=== PATIENT | male | born 1945 | race Caucasian/White ===

== ENCOUNTER → 2016-09-24 | Outpatient (CLI) | payer OTHER, MEDICARE ==
[2016-09-24 08:23] LABS: CALCIUM 9.4 mg/dL (8.5-10.1); CREATININE 1.1 mg/dL (0.7-1.3); POTASSIUM 4.1 mmol/L (3.5-5.1)
== END ==
LOC: CAT 07:12
PROVIDERS: Internal Medicine Cardiovascular Disease
DX: Z01.812 Encounter for preprocedural laboratory examination (principal); I71.4 Abdominal aortic aneurysm, without rupture; Q61.02 Congenital multiple renal cysts

== ENCOUNTER → 2016-10-04 | Outpatient (CLI) | payer OTHER, MEDICARE ==
[~2016-10-04] VITALS: Ht 180.3 cm; Wt 111.1 kg
[~2016-10-04] MED LIST: CENTRUM SILVER1 EAC2 PO; DIOVAN320 MG PO; FENOFIBRATE160 MG PO; HYDROCHLOROTHIA25 M2 PO; LIPITOR40 MG PO; LOPRESSOR25 PO; VASCEPA1 GM PO; VITAMIN B-12500 MCG PO; VITAMIN D35000 UNI1 PO; WELCHOL 625 MG625 MG PO
--- NOTE | ~2016-10-04 | EKG ---
[address] [address] ELECTROCARDIOGRAM REPORT Name: VICK NORIEGA [id number] Admission: 10/04/16 Attend Phys: Cisco Adkins MD, Discharge: Date of : 41 Report #: [id number] THIS REPORT FOR: //name// [facility] Test Date: 2016-10-04 Test Time: 08:36:22 Pat Name: VICK NORIEGA Department: Room: Gender: M Spring Encaser: GR : 1945 Requested By: Cisco Adkins Order Number: [id number] MD: Measurements Intervals [place] Rate: 58 P: 58 IN: 146 QRS: 54 QRSD: 97 T: -45 QT: 537 QTc: 528 Interpretive Statements Sinus rhythm Borderline low voltage, extremity leads Prolonged QT interval Compared to ECG 12/05/2010 10:50:34 Prolonged QT interval now present [email or web address] By: [id number] [id number] Epiphany Epiphany, /EPI
--- NOTE | ~2016-10-04 | CATHLAB ---
[facility] [place] [address] INVASIVE PROCEDURE REPORT Name: VICK NORIEGA Room #: [facility] Kyaw#: [id number] Admission: 10/04/16 Attend Phys: Cisco Adkins, Discharge: Date of : 41 Date of Service: 10/08/16 0934 Report #: [id number] THIS REPORT FOR: //name// APPROVED REPORT Patient Details Patient Status: Out-Patient Room #: The patient is a 70 year-old male Event Personnel Cisco Adkins Chalk Molding Machine Operator, Cecelia Brown RN RN, Hilda Carranza Sandifer, David Monitor, Dina Mcghee RN Procedures Performed Left Heart Cath Coronaries, Bypass Grafts [id number] CCORCA , Coronary Angiography with grafts, Left Heart Catheterization Procedure Narrative The Right Groin^ was infiltrated with 1% Lidocaine subcutaneous anesthesia. A PINNACLE 7FR Sheath #[id number] sheath was inserted into the RFA^. Coronary angiography was performed using coronary diagnostic catheters. The right coronary system was accessed and visualized with a JR4 catheter. The left coronary system was accessed and visualized with a JL4 catheter. The left ventricle was accessed and visualized with a PIGTAIL catheter. Left ventriculogram was performed in 30 degree projection. There was no hematoma. Intraoperative Conscious Sedation Sedation start time: 9:51 Case end Time: 11:01 Fentanyl 100.0 mcg Versed 2.0 mg Fluoro Time: 15.32 minutes Dose: 4555 mGy Contrast Type and Amount: Visipaque 325 ml Hemodynamics The aortic pressure is 136/76 mmHg with a mean of 99 mmHg. The left ventricular pressure is 132/12 mmHg with a mean of mmHg. The left ventricular end diastolic pressure is 28 mmHg. Conclusion [facility] [address] [place] [address] INVASIVE PROCEDURE REPORT Name: VICK NORIEGA [facility] [id number] Admission: 10/04/16 Attend Phys: Cisco Adkins, Discharge: Date of : 41 Date of Service: 10/08/16 0934 Report #: [id number] #1 left main free disease given rise to LAD and circumflex #2 LAD moderate disease proximal and totally occludes after the first septal c4 planner. #3 CARBAJAL to LAD is intact with minimal irregularities this LAD extends around the apex with minimal irregularity. #4 SVG to diagonal intact with mild irregularity #5 dominant circumflex mild disease appears a first OM may be occluded chronically but the distal vasculature is widely patent. #6 small nondominant RCA minimal irregularity Indications a plan continue aggressive risk factor modification no indication for coronary intervention. Dr. Blackburn to complete aortography and possible coil for KIA patient is candidate for potential aortic stent graft <ELECTRONICALLY SIGNED> By: Cisco Adkins MD, [facility] 10/08/16933 3 3 Cisco Adkins MD, FAC /INF
[2016-10-04 08:51] LABS: HEMATOCRIT 43.2 % (42.0-52.0); HEMOGLOBIN 15.4 gm/dL (14.0-18.0); MCH 32.2 pg (26.0-34.0); MCHC 35.5 g/dL (28.0-37.0); MCV 90.6 fL (80.0-100.0); RBC 4.77 mil/uL (4.50-6.00); WBC 6.3 thou/uL (4.0-11.0)
[2016-10-04 08:58] LABS: CALCIUM 9.2 mg/dL (8.5-10.1); CREATININE 1.2 mg/dL (0.7-1.3); POTASSIUM 4.3 mmol/L (3.5-5.1)
[2016-10-04 09:04] LABS: PROTIME 10.6 Seconds (9.3-11.4)
[2016-10-04 09:09] VITALS: BP 118/55
== END | disposition home or self-care (01) ==
LOC: CATH 08:09
PROVIDERS: Internal Medicine Cardiovascular Disease
DX: I25.10 Atherosclerotic heart disease of native coronary artery without angina pectoris (principal); I71.4 Abdominal aortic aneurysm, without rupture; I13.10 Hypertensive heart and chronic kidney disease without heart failure, with stage 1 through stage 4 chronic kidney disease, or unspecified chronic kidney disease; N18.9 Chronic kidney disease, unspecified; E78.00 Pure hypercholesterolemia, unspecified; K21.9 Gastro-esophageal reflux disease without esophagitis; Z87.891 Personal history of nicotine dependence; Z95.1 Presence of aortocoronary bypass graft; E66.9 Obesity, unspecified; Z82.49 Family history of ischemic heart disease and other diseases of the circulatory system

== ENCOUNTER 2016-10-17 05:35 | Inpatient (IN) | payer OTHER, MEDICARE ==
[2016-10-16 10:36] LABS: URINE BILIRUBIN NEGATIVE (Negative); URINE BLOOD NEGATIVE (Negative); URINE COLOR YELLOW; URINE GLUCOSE-RANDOM* NEGATIVE (Negative); URINE KETONES NEGATIVE (Negative); URINE LEUKOCYTES-REFLEX NEGATIVE (Negative); URINE PROTEIN (DIPSTICK) NEGATIVE (Negative); URINE SPECIFIC GRAVITY 1.025 (1.003-1.035); URINE UROBILINOGEN 0.2 E.U./dl (0.2-1.0)
[2016-10-16 10:49] LABS: ALBUMIN 3.9 g/dL (3.4-5.0); CALCIUM 9.3 mg/dL (8.5-10.1); CREATININE 1.2 mg/dL (0.7-1.3); POTASSIUM 4.4 mmol/L (3.5-5.1); TOTAL BILIRUBIN 0.5 mg/dL (<0.1-1.0); TOTAL PROTEIN 6.5 g/dL (6.4-8.2)
[~2016-10-17] VITALS: Ht 152.4 cm; Wt 118.7 kg
[2016-10-17] VITALS (11 sets, daily range): BP systolic 99–127; BP diastolic 48–67
--- NOTE | ~2016-10-17 | O ---
[facility] [place] [address] OPERATIVE REPORT Name: VICK NORIEGA Room #: 242-P [facility] [place] ..#: [id number] Admission: 10/17/16 Attend Phys: Coy Lopez MD Discharge: 10/18/16 Date of : 41 Report #: [id number] THIS REPORT FOR: //name// CC: Richy Lopez DATE OF SERVICE: 10/17/2016 PREOPERATIVE DIAGNOSIS: Infrarenal abdominal aortic aneurysm, asymptomatic. FINAL DIAGNOSIS: Infrarenal abdominal aortic aneurysm, asymptomatic. OPERATIVE PROCEDURE PERFORMED: 1. Bilateral femoral artery exploration. 2. Endovascular repair of infrarenal abdominal aortic aneurysm. SURGEON: Coy Lopez M.D. CO-SURGEON: Navid Barnes M.D. HOP SORTER: Pranav Pendleton M.D. ANESTHESIA: General. OPERATIVE INDICATIONS: The patient is a 70-year-old male who was found to have an infrarenal abdominal aortic aneurysm that has been followed. The patient has evidence of recent growth. The aneurysm is saccular in nature and measures 4.6 cm in size. Due to the saccular nature and recent growth change, it was felt appropriate to proceed with aneurysm repair. OPERATIVE SUMMARY: The patient was brought to the interventional lab, placed on the table in supine position. After anesthesia was induced via the general endotracheal route and monitoring lines have been positioned, the patient was prepped and draped in sterile fashion with chlorhexidine. Oblique incisions were made in each groin. Dissection was carried down to the subcutaneous fat to enter the femoral sheaths. The common and superficial femoral arteries were identified and dissected free from surrounding tissue. The patient was given 10,000 units of intravenous heparin. Access was obtained utilizing the Seldinger technique with an 18-gauge needle and a soft wire. Over catheters, a Luisito wire was placed on the patient's left side. We first placed a 6-Mohawk sheath and then over a guidewire a 12-Mohawk sheath on the patient's left side and then an 18-Mohawk sheath was positioned on the patient's right side. A hollingsworth's hook catheter was used to identify the accessory renal artery on the patient's left side. The guidewire was placed in this vessel for marking purposes. The device was introduced in the patient's right side of the 18-Mohawk sheath and was positioned just below the accessory renal artery. This [address] [address] OPERATIVE REPORT Name: VICK NORIEGA Room #: 242-P DIS IN [facility]#: [id number] Admission: 10/17/16 Attend Phys: Coy Lopez MD Discharge: 10/18/16 Date of : 43 Report #: [id number] was a 26 x 14 x 12 Big Bar Excluder endoprosthesis. Contrast injection confirmed appropriate placement and then the device was deployed. The contralateral limb was then accessed utilizing catheter and guidewire. A pigtail catheter was placed. The test confirmed appropriate placement. Measurements were made from the gate to the hypogastric artery on the patient's left side. The location of hypogastric artery was confirmed by retrograde sheath injection of contrast. An 18 x 10 contralateral leg extension was selected and was positioned in the gate and deployed. We then used a balloon catheter to fully extend the endoprosthesis in the body and in both limbs. A pigtail catheter was then positioned proximal to the graft for completion angiography. This revealed a type 1 endoleak at the proximal site. We attempted reinflation of a stiffer balloon to ensure good sealing of the trunk. We repeated angiography and again the endoleak was present, although it seemed improved. We then selected a 26 x 3 cm proximal cuff. This was deployed again just below the renal artery inside the prior stent graft. Completion angiography was performed yet again showing evidence of no endoleak this time. There was good flow into both hypogastric vessels. We then removed all sheaths and wires. The femoral access sites were closed with 5-0 Prolene suture in an interrupted fashion. The flow was restored to each of the leg. Protamine was given to reverse the heparin. The wounds were irrigated with normal saline solution and closed in multiple layers with absorbable suture. The procedure was completed. The patient was taken to the postanesthesia care unit in stable condition. The operative blood loss was about 100 mL. There were no intraoperative complications noted. All sponge and needle counts were reported as correct. <ELECTRONICALLY SIGNED> By: Coy Lopez MD 10/18/161954 46 35 Coy Lopez MD /nt
[~2016-10-17 05:35] MED LIST changes: +ASPIRIN325 PO; +VALSARTAN-HCTZ1 EAC3 PO
[2016-10-17 06:12] LABS: GLYCOHEMOGLOBIN (HGB A1C) 5.3 % (4.8-5.6)
[2016-10-18] VITALS (8 sets, daily range): BP systolic 105–148; BP diastolic 39–62
[2016-10-18 05:34] LABS: HEMATOCRIT 35.1 % (42.0-52.0); HEMOGLOBIN 12.2 gm/dL (14.0-18.0); MCH 31.7 pg (26.0-34.0); MCHC 34.7 g/dL (28.0-37.0); MCV 91.3 fL (80.0-100.0); RBC 3.85 mil/uL (4.50-6.00); RDW 12.9 % (10.5-14.5); WBC 10.1 thou/uL (4.0-11.0)
[2016-10-18 05:42] LABS: CALCIUM 7.7 mg/dL (8.5-10.1); POTASSIUM 3.8 mmol/L (3.5-5.1)
== END 2016-10-18 12:10 | disposition home or self-care (01) | DRG 269 ==
LOC: PRE 05:35 → ICU 06:02 → TBA 06:02 → PRE 09:49 → ICU 16:09
PROVIDERS: Nurse Practitioner; Thoracic Surgery (Cardiothoracic Vascular Surgery)
PROC: 04V03DZ Restriction of Abdominal Aorta with Intraluminal Device, Percutaneous Approach (ICD-10-PCS; principal; 2016-10-17)
PROC: 04JY3ZZ Inspection of Lower Artery, Percutaneous Approach (ICD-10-PCS; principal; 2016-10-17)
PROC: B4181ZZ Fluoroscopy of Bilateral Renal Arteries using Low Osmolar Contrast (ICD-10-PCS; 2016-10-17)
DX: I71.4 Abdominal aortic aneurysm, without rupture (principal); I10 Essential (primary) hypertension; E78.00 Pure hypercholesterolemia, unspecified; I65.29 Occlusion and stenosis of unspecified carotid artery; I25.10 Atherosclerotic heart disease of native coronary artery without angina pectoris; E78.5 Hyperlipidemia, unspecified; Z79.82 Long term (current) use of aspirin; Z79.899 Other long term (current) drug therapy; Z88.1 Allergy status to other antibiotic agents; Z95.1 Presence of aortocoronary bypass graft; Z98.42 Cataract extraction status, left eye; Z98.41 Cataract extraction status, right eye; Z87.891 Personal history of nicotine dependence
CPT/HCPCS: 10078; 47375; 48888; 50010; 50101; 50386; 50455; 55022; 56524; 56526; 56527; 56668; 56760; 57093; 62110; 62900; 65002; 65020; 65040; 70005

== ENCOUNTER → 2016-11-26 | Outpatient (CLI) | payer OTHER, MEDICARE | LOC: CAT 07:52 | PROVIDERS: Nuclear Medicine Nuclear Cardiology | DX: Z01.812 Encounter for preprocedural laboratory examination (principal); N28.1 Cyst of kidney, acquired; I71.4 Abdominal aortic aneurysm, without rupture; Z95.828 Presence of other vascular implants and grafts ==

== ENCOUNTER 2018-01-05 20:07 | Inpatient (IN) | payer OTHER ==
[~2018-01-05] VITALS: Ht 180.3 cm; Wt 120.2 kg
--- NOTE | ~2018-01-05 | 2DMMODE ---
[facility] [address] [place] [address] 2 D/M-MODE ECHOCARDIOGRAM Name: VICK NORIEGA Room #: 219-P [facility] IN [facility]#: [id number] Admission: 01/05/18 Attend Phys: Jan Mukherjee Discharge: Date of : 41 Date of Service: 01/06/18 1128 Report #: [id number] THIS REPORT FOR: //name// APPROVED REPORT Study performed: 01/06/2018 10:28:33 EXAM: Comprehensive 2D, Doppler, and color-flow Echocardiogram Patient Location: In-Patient Room #: 219 Status: routine BSA: 2.34 HR: 62 bpm BP: 111/65 mmHg Other Information Study Quality: Technically Difficult Technically limited study due to body habitus. Indications CAD Hypertension/HDD CABG in 2005, AAA repair in September 2016 Echo Enhancing Agent Indication: Endocardial border delineation Agent(s) / Amount(s) Used: Optison 3 cc 2D Dimensions RVDd: 41.64 mm IVSd: 12.68 (7-11mm) LVOT Diam: 19.73 (18-24mm) LVDd: 46.67 mm PWd: 14.07 (7-11mm) Ascending Ao: 27.14 (22-36mm) LVDs: 34.83 (25-40mm) Aortic Root: 30.56 mm IVC: 20.00 mm Volumes Left Atrial Volume (Systole) Single Plane 4CH: 38.56 mL Single Plane 2CH: 39.18 mL LA ESV Index: 18.00 mL/m2 Aortic Valve AoV Peak Gordo.: 1.69 m/s AO Peak Gr.: 11.45 mmHg LVOT Max P.94 mmHg [facility] [address] [place] [address] 2 D/M-MODE ECHOCARDIOGRAM Name: VICK NORIEGA Room #: 219-P [facility] IN [facility].#: [id number] Admission: 01/05/18 Attend Phys: Jan Mukherjee Discharge: Date of : 41 Date of Service: 01/06/18 1128 Report #: [id number] LVOT Max V: 1.11 m/s TOBIN Vmax: 2.01 cm2 Mitral Valve E/A Ratio: 0.6 MV Decel. Time: 254.05 ms MV E Max Gordo.: 0.69 m/s MV A Gordo.: 1.08 m/s MV PHT: 73.67 ms IVRT: 115.34 ms Pulmonary Valve PV Peak Gordo.: 1.05 m/s PV Peak Gr.: 4.42 mmHg Pulmonary Vein P Vein S: 0.71 m/s P Vein A: 0.17 m/s P Vein D: 0.42 m/s P Vein A Dur.: 115.3 msec P Vein S/D Ratio: 1.69 Tricuspid Valve TR Peak Gordo.: 3.06 m/s RAP Estimate: 5.00 mmHg TR Peak Gr.: 37.49 mmHg PA Pressure: 43.00 mmHg Left Ventricle The left ventricle is normal size. Mild concentric left ventricular hypertrophy. The left ventricular systolic function is normal. The left ventricular ejection fraction is within the normal range. LVEF is 55%. Mild diastolic dysfunction is present (impaired relaxation pattern). Right Ventricle Right ventricle is dilated. The right ventricular systolic function is normal. Atria The left atrium size is normal. Right atrium is mildly dilated. Aortic Valve The aortic valve is normal in structure. No aortic regurgitation is present. There is no aortic valvular stenosis. Mitral Valve The mitral valve is normal in structure. Trace mitral regurgitation. No evidence of mitral valve stenosis. [address] [address] 2 D/M-MODE ECHOCARDIOGRAM Name: VICK NORIEGA Room #: 219-P [facility] IN [facility]#: [id number] Admission: 01/05/18 Attend Phys: Jan Mukherjee Discharge: Date of : 41 Date of Service: 01/06/18 1128 Report #: [id number] Tricuspid Valve The tricuspid valve is normal in structure. Severe tricuspid regurgitation. PAP is estimated at 43 mmHg. Pulmonic Valve Pulmonic valve is not well visualized. Great Vessels The aortic root is normal in size. IVC is normal in size and collapses >50% with inspiration. Pericardium There is no pericardial effusion. <Conclusion> The left ventricle is normal size. LVEF is 55%. Right ventricle is dilated. Right atrium is mildly dilated. The aortic valve is normal in structure. The mitral valve is normal in structure. Trace mitral regurgitation. The tricuspid valve is normal in structure. Severe tricuspid regurgitation. PAP is estimated at 43 mmHg. There is no pericardial effusion. <ELECTRONICALLY SIGNED> By: Kong Felix MD 01/06/18 1128 27 27 Kong Felix MD /INF
--- NOTE | ~2018-01-05 | EKG ---
[address] [place] [address] ELECTROCARDIOGRAM REPORT Name: VICK NORIEGA Room #: 219-P ADM IN M.R.#: [id number] Admission: 01/05/18 Attend Phys: Alber Haynes MD Discharge: Date of : 43 Report #: [id number] THIS REPORT FOR: //name// [facility] ED Test Date: 2018-01-05 Test Time: 20:18:41 Pat Name: VICK NORIEGA Department: Room: 219 Gender: M Technical Editor: ANA MARÍA : 1945 Requested By: Arvin Bell Order Number: [id number] MD: Jessee Fowler Measurements Intervals [place] Rate: 60 P: 75 IN: 146 QRS: 56 QRSD: 89 T: 58 QT: 460 QTc: 460 Interpretive Statements Sinus rhythm Nonspecific ST and T wave abnormality Compared to ECG 10/04/2016 08:36:22 No significant change was found Electronically Signed On 01-06-2018 9:31:29 CDT by Jessee Fowler [email or web address] <ELECTRONICALLY SIGNED> By: Jessee Fowler MD, [facility] 01/06/18 0931 17 17 Jessee Fowler MD, FACC /EPI
[2018-01-05 20:11] VITALS: BP 98/44
[2018-01-05 20:42] LABS: ABSOLUTE NEUTROPHILS 7.3 thou/uL (1.4-8.2); BASOPHILS 0.7 % (0.0-2.0); EOSINOPHILS 2.2 % (0.0-3.0); HEMATOCRIT 32.1 % (42.0-52.0); HEMOGLOBIN 11.2 gm/dL (14.0-18.0); LYMPHOCYTES 15.1 % (24.0-44.0); MCH 32.1 pg (26.0-34.0); MCV 91.9 fL (80.0-100.0); MONOCYTES 7.9 % (1.0-8.0); PLATELET COUNT 198 thou/uL (150-400); POLYS 74.1 % (36.0-66.0); RDW 13.5 % (10.5-14.5); WBC 9.8 thou/uL (4.0-11.0)
[2018-01-05 20:48] LABS: ANION GAP 6 mmol/L (7-16); BUN 50 mg/dL (7-18); CALCIUM 9.3 mg/dL (8.5-10.1); CHLORIDE 106 mmol/L (98-107); CO2 27 mmol/L (21-32); CREATININE 1.2 mg/dL (0.7-1.3); GLUCOSE 123 mg/dL (74-106); SODIUM 139 mmol/L (136-145)
[2018-01-05 20:50] LABS: POTASSIUM 4.3 mmol/L (3.5-5.1)
[2018-01-05 20:57] LABS: ALBUMIN 3.1 g/dL (3.4-5.0); LIPASE 210 U/L (73-393); MAGNESIUM 1.8 mg/dL (1.8-2.4); SGOT 20 U/L (15-37); SGPT 23 U/L (30-65); TOTAL BILIRUBIN 0.5 mg/dL (<0.1-1.0); TROPONIN-I <0.06 ng/mL (<0.06)
[2018-01-05 21:49] LABS: APTT 22.8 Seconds (24.5-32.8); INR 1.1; PROTIME 10.9 Seconds (9.3-11.4)
[2018-01-05 22:58] VITALS: BP 136/63
[2018-01-05 23:15] VITALS: BP 133/69
[2018-01-06] MEDS ORDERED: BYSTOLIC2.5 MG PO (02:38)
[2018-01-06 04:13] LABS: HEMATOCRIT 28.5 % (42.0-52.0); HEMOGLOBIN 9.9 gm/dL (14.0-18.0); MCH 31.9 pg (26.0-34.0); MCHC 34.5 g/dL (28.0-37.0); MCV 92.5 fL (80.0-100.0); RBC 3.09 mil/uL (4.50-6.00); RDW 13.7 % (10.5-14.5); WBC 7.7 thou/uL (4.0-11.0)
[2018-01-06 04:26] LABS: CALCIUM 8.9 mg/dL (8.5-10.1); CREATININE 1.2 mg/dL (0.7-1.3); POTASSIUM 4.7 mmol/L (3.5-5.1)
[2018-01-06 04:44] VITALS: BP 91/51
[2018-01-06 05:04] VITALS: BP 112/65
[2018-01-06 05:08] LABS: CHOLESTEROL 102 mg/dL (<200); HDL CHOLESTEROL 27 mg/dL (>40); LDL CHOLESTEROL 40 mg/dL (<100); SERUM ASSESSMENT Clear; TC:HDL 3.8 Ratio (Not establshd); TRIGLYCERIDE 176 mg/dL (<150); VLDL 35 mg/dL (<40)
[2018-01-06 07:52] VITALS: BP 111/65
[2018-01-06 10:53] VITALS: BP 107/70
[2018-01-06 21:12] VITALS: BP 139/46
[2018-01-07] VITALS (7 sets, daily range): BP systolic 110–145; BP diastolic 57–73
[2018-01-07 03:16] LABS: HEMATOCRIT 27.1 % (42.0-52.0)
[2018-01-08 04:17] LABS: CALCIUM 8.4 mg/dL (8.5-10.1); CREATININE 1.2 mg/dL (0.7-1.3)
[2018-01-08 04:47] LABS: HEMATOCRIT 24.2 % (42.0-52.0); HEMOGLOBIN 8.3 gm/dL (14.0-18.0); MCH 31.9 pg (26.0-34.0); MCHC 34.4 g/dL (28.0-37.0); MCV 92.7 fL (80.0-100.0); RBC 2.61 mil/uL (4.50-6.00); RDW 13.9 % (10.5-14.5); WBC 6.5 thou/uL (4.0-11.0)
[2018-01-08 05:57] VITALS: BP 138/71
[2018-01-08 08:44] VITALS: BP 136/68
[2018-01-08] MEDS ORDERED: PROTONIX40 M2 PO (10:07)
[2018-01-08 10:53] VITALS: BP 146/55
[2018-01-08 12:04] VITALS: BP 146/55
== END 2018-01-08 13:30 | disposition home or self-care (01) | DRG 377 ==
LOC: ER 20:07 → EROBS 21:39 → 2N 21:39 → ENTRNSPT 01-08 13:14 → EDTRNSPTSTS 01-08 13:15 → 2N 01-08 13:30
PROVIDERS: Emergency Medicine; Hospitalist; Internal Medicine Gastroenterology; Nurse Practitioner Family
PROC: 0W3P8ZZ Control Bleeding in Gastrointestinal Tract, Via Natural or Artificial Opening Endoscopic (ICD-10-PCS; principal; 2018-01-06)
DX: K26.4 Chronic or unspecified duodenal ulcer with hemorrhage (principal); E43 Unspecified severe protein-calorie malnutrition; T39.015A Adverse effect of aspirin, initial encounter; D64.9 Anemia, unspecified; G89.29 Other chronic pain; M54.9 Dorsalgia, unspecified; E78.5 Hyperlipidemia, unspecified; E78.00 Pure hypercholesterolemia, unspecified; G47.30 Sleep apnea, unspecified; I08.1 Rheumatic disorders of both mitral and tricuspid valves; E53.8 Deficiency of other specified B group vitamins; E55.9 Vitamin D deficiency, unspecified; I65.29 Occlusion and stenosis of unspecified carotid artery; I25.10 Atherosclerotic heart disease of native coronary artery without angina pectoris; I12.9 Hypertensive chronic kidney disease with stage 1 through stage 4 chronic kidney disease, or unspecified chronic kidney disease; N18.3 Chronic kidney disease, stage 3 (moderate); Z88.1 Allergy status to other antibiotic agents; Z95.1 Presence of aortocoronary bypass graft; Z87.891 Personal history of nicotine dependence; Z79.82 Long term (current) use of aspirin; Z98.42 Cataract extraction status, left eye; Z98.41 Cataract extraction status, right eye; Z79.899 Other long term (current) drug therapy; I25.2 Old myocardial infarction; Z80.0 Family history of malignant neoplasm of digestive organs; Y92.89 Other specified places as the place of occurrence of the external cause
CPT/HCPCS: 10081; 62110; 62900

== ENCOUNTER 2018-01-09 15:16 | Inpatient (IN) | payer OTHER ==
[~2018-01-09] VITALS: Ht 152.4 cm; Wt 118.4 kg
--- NOTE | ~2018-01-09 | EKG ---
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: DINORA : 1945 Requested By: Eula Stapleton Order Number: [id number] MD: Jessee Fowler Measurements Intervals [place] Rate: 67 P: 74 SC: 156 QRS: 37 QRSD: 93 T: 20 QT: 489 QTc: 517 Interpretive Statements Sinus rhythm Low voltage, precordial leads Abnormal R-wave progression, early transition Prolonged QT interval No significant change was found Electronically Signed On 01-10-2018 8:54:39 CDT by Jessee Fowler [email or web address] <ELECTRONICALLY SIGNED> By: Jessee Fowler MD, [facility] 01/10/18 0854 1603 160 Jessee Fowler MD, [facility] /EPI
[~2018-01-09 15:16] MED LIST changes: +BYSTOLIC2.5 MG PO; +PROTONIX40 M2 PO
[2018-01-09 18:17] LABS: ABSOLUTE NEUTROPHILS 4.8 thou/uL (1.4-8.2); BASOPHILS 0.6 % (0.0-2.0); EOSINOPHILS 3.2 % (0.0-3.0); HEMATOCRIT 22.6 % (42.0-52.0); HEMOGLOBIN 7.9 gm/dL (14.0-18.0); LYMPHOCYTES 19.5 % (24.0-44.0); MCH 32.3 pg (26.0-34.0); MCHC 34.8 g/dL (28.0-37.0); MCV 92.8 fL (80.0-100.0); MONOCYTES 10.5 % (1.0-8.0); PLATELET COUNT 168 thou/uL (150-400); POLYS 66.2 % (36.0-66.0); RBC 2.43 mil/uL (4.50-6.00); RDW 14.3 % (10.5-14.5); WBC 7.2 thou/uL (4.0-11.0)
[2018-01-09 18:23] LABS: ANION GAP 7 mmol/L (7-16); BUN 23 mg/dL (7-18); CALCIUM 8.9 mg/dL (8.5-10.1); CHLORIDE 108 mmol/L (98-107); CO2 27 mmol/L (21-32); CREATININE 1.1 mg/dL (0.7-1.3); GLUCOSE 107 mg/dL (74-106); POTASSIUM 4.1 mmol/L (3.5-5.1); SODIUM 142 mmol/L (136-145)
[2018-01-09 18:32] LABS: ALBUMIN 3.1 g/dL (3.4-5.0); SGOT 17 U/L (15-37); SGPT 19 U/L (30-65); TOTAL BILIRUBIN 0.3 mg/dL (<0.1-1.0); TOTAL PROTEIN 5.7 g/dL (6.4-8.2); TROPONIN-I <0.06 ng/mL (<0.06)
[2018-01-09 19:15] LABS: URINE BILIRUBIN NEGATIVE (Negative); URINE BLOOD NEGATIVE (Negative); URINE CLARITY CLEAR; URINE COLOR YELLOW; URINE GLUCOSE-RANDOM* NEGATIVE (Negative); URINE KETONES NEGATIVE (Negative); URINE LEUKOCYTES NEGATIVE (Negative); URINE NITRITE NEGATIVE (Negative); URINE PROTEIN (DIPSTICK) NEGATIVE (Negative); URINE SPECIFIC GRAVITY 1.025 (1.005-1.035); URINE UROBILINOGEN 0.2 E.U./dl (0.2-1.0)
[2018-01-09 20:16] VITALS: BP 114/47
[2018-01-09 20:26] VITALS: BP 117/45
[2018-01-09 20:53] VITALS: BP 112/59
[2018-01-10] VITALS (7 sets, daily range): BP systolic 111–153; BP diastolic 47–79
[2018-01-10 06:41] LABS: HEMATOCRIT 26.1 % (42.0-52.0); HEMOGLOBIN 8.8 gm/dL (14.0-18.0)
[2018-01-11 03:49] VITALS: BP 119/73
[2018-01-11 08:00] VITALS: BP 138/67
[2018-01-11 14:22] LABS: HEMATOCRIT 28.2 % (42.0-52.0); HEMOGLOBIN 9.8 gm/dL (14.0-18.0); MCH 33.3 pg (26.0-34.0); MCHC 34.7 g/dL (28.0-37.0); MCV 95.9 fL (80.0-100.0); RBC 2.94 mil/uL (4.50-6.00); RDW 15.2 % (10.5-14.5); WBC 8.3 thou/uL (4.0-11.0)
[2018-01-11 14:29] LABS: CALCIUM 8.9 mg/dL (8.5-10.1); CREATININE 1.3 mg/dL (0.7-1.3); POTASSIUM 4.4 mmol/L (3.5-5.1)
[2018-01-11 14:48] VITALS: BP 138/67
[2018-01-11] MEDS ORDERED: IRON325 PO (14:48)
[2018-01-11 14:51] VITALS: BP 138/67
[2018-01-12] MEDS ORDERED: VASEPA PO (22:31)
[2018-01-12] MEDS ORDERED: PROTONIX40 M1 PO (22:33)
== END 2018-01-11 15:20 | disposition home or self-care (01) | DRG 377 ==
LOC: ER 15:16 → 4W 19:54 → EROBS 19:54 → 4W 20:42
PROVIDERS: Hospitalist; Internal Medicine Gastroenterology; Physician Assistant
PROC: 30233N1 Transfusion of Nonautologous Red Blood Cells into Peripheral Vein, Percutaneous Approach (ICD-10-PCS; principal; 2018-01-10)
DX: K92.2 Gastrointestinal hemorrhage, unspecified (principal); E43 Unspecified severe protein-calorie malnutrition; D62 Acute posthemorrhagic anemia; E78.00 Pure hypercholesterolemia, unspecified; E53.8 Deficiency of other specified B group vitamins; E55.9 Vitamin D deficiency, unspecified; N18.3 Chronic kidney disease, stage 3 (moderate); I12.9 Hypertensive chronic kidney disease with stage 1 through stage 4 chronic kidney disease, or unspecified chronic kidney disease; I25.10 Atherosclerotic heart disease of native coronary artery without angina pectoris; Z95.5 Presence of coronary angioplasty implant and graft; Z95.1 Presence of aortocoronary bypass graft; Z98.42 Cataract extraction status, left eye; Z98.41 Cataract extraction status, right eye; Z87.891 Personal history of nicotine dependence; Z83.3 Family history of diabetes mellitus; Z88.1 Allergy status to other antibiotic agents; I25.2 Old myocardial infarction; Z87.11 Personal history of peptic ulcer disease
CPT/HCPCS: 10045

== ENCOUNTER 2018-01-12 22:26 | Inpatient (IN) | payer OTHER ==
[~2018-01-12] VITALS: Ht 180.3 cm; Wt 119.2 kg
--- NOTE | ~2018-01-12 | P ---
[facility] [address] [place] [address] PROCEDURE REPORT Name: VICK NORIEGA Room #: 239-P [facility] IN M.R.#: [id number] Admission: 01/13/18 Attend Phys: Fitz Garnica MD Discharge: Date of : 43 Report #: [id number] THIS REPORT FOR: //name// CC: Richy Garnica BRIEF HISTORY: The patient is a 72-year-old male who was admitted to [facility] last week with upper GI bleed and a bleeding duodenal ulcer was found. However, he returns with recurrent GI bleeding. He reports last night he vomited reddish material and he also passed red blood from his rectum. Last night was the first time he had red blood from his rectum. PREOPERATIVE DIAGNOSIS: Upper gastrointestinal bleed with hematemesis. POSTOPERATIVE DIAGNOSES: 1. Bleeding lesion, presumably ulcer, second portion of the duodenum. 2. Healing ulcer site from BICAP cautery one week ago. 3. Small hiatus hernia. MEDICATIONS: Deep sedation with propofol per anesthesia. SPECIMEN: Biopsies of gastritis. ESTIMATED BLOOD LOSS: 3 mL. PROCEDURE: EGD with BICAP cautery of bleeding lesion, second portion of the duodenum. FINDINGS: Prior to propofol sedation, the procedure of upper endoscopy was discussed with the patient as well as potential risks and its complications. He indicates he understands and desires to proceed. With the patient in the left lateral decubitus position, the Olympus video therapeutic scope was inserted in the cervical esophagus, advanced under direct vision. Examination of the esophagus through its entire length revealed normal esophageal mucosa down to the squamocolumnar junction. The squamocolumnar junction was inspected and noted to be unremarkable. No blood was seen in the esophagus. A small 2 cm sliding type hiatus hernia was seen. Mucosa and hernia was normal. The scope was advanced in the stomach, was examined on end view as well as retroflexed views. There was no blood in the stomach. The scope was inserted and withdrawal on multiple occasions through the stomach with end view as well as retroflexed views. No bleeding lesions or potential bleeding lesions could be seen. Again, blood was not seen in the stomach. The pylorus was normal. Examination of the duodenal bulb initially revealed no blood. However, on a second look there was a small amount of blood in the very distal bulb. [address] [address] PROCEDURE REPORT Name: VICK NORIEGA Room #: 239-P [facility] IN .R.#: [id number] Admission: 01/13/18 Attend Phys: Fitz Garnica MD Discharge: Date of : 43 Report #: [id number] This was cleaned up and not much was noted. Examination of the duodenal sweep revealed that there was no blood in the third and fourth portion of duodenum. However, in the very proximal second portion just beyond the duodenal bulb on the backside of folds, there was a small amount of oozing. The previous site from BICAP cautery one week ago was noted in the same vicinity, but the blood was not coming from that lesion, but rather at the same level at about 90 degrees from that lesion. It is very difficult to see. Using a 10-[place] probe, we applied multiple applications with a BICAP catheter and the oozing ceased. No other lesions were seen. Hemostasis was achieved. The scope was withdrawn. The patient tolerated the procedure well. Biopsy obtained of the gastritis. DISPOSITION: The patient with GI bleeding. The previously treated site looks good; however, there was bleeding at the same segment, which may be another lesion which was difficult to visualize today. We will continue to monitor for bleeding. Continue PPI. Since he had red blood per rectum last night, we will proceed with colonoscopy at this time. <ELECTRONICALLY SIGNED> By: Paulie Multani MD 01/14/18 0732 1543 0353 Paulie Multani MD /nt
--- NOTE | ~2018-01-12 | EKG ---
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: ANA MARÍA : 1945 Requested By: Joan Flores Order Number: [id number] MD: Jessee Fowler Measurements Intervals [place] Rate: 69 P: 78 SC: 145 QRS: 43 QRSD: 88 T: 9 QT: 376 QTc: 403 Interpretive Statements Sinus rhythm Nonspecific ST and T wave abnormality Early R-wave progression Compared to ECG 01/09/2018 16:03:18 No significant change was found Electronically Signed On 01-13-2018 8:12:07 SURGICAL RESIDENT by Jessee Fowler [email or web address] <ELECTRONICALLY SIGNED> By: Jessee Fowler MD, [facility] 01/13/18 0812 0644 Jessee Fowler MD, [facility] /EPI
--- NOTE | ~2018-01-12 | P ---
[facility] [place] [address] PROCEDURE REPORT Name: VICK NORIEGA Room #: 239-P [facility] IN M.R.#: [id number] Admission: 01/13/18 Attend Phys: Fitz Garnica MD Discharge: Date of : 41 Report #: [id number] THIS REPORT FOR: //name// CC: Richy Apodaca Austinsabrina Garnica BRIEF HISTORY: The patient is a 72-year-old male who was admitted once again to [facility] with recurrent GI bleeding. The patient had melena last week and was treated for duodenal ulcer. He reports now that he had black liquidy stool and also red blood per rectum last evening. The red blood per rectum was a new finding for the patient. PREOPERATIVE DIAGNOSIS: Rectal bleeding. POSTOPERATIVE DIAGNOSIS: Diverticulosis coli, sigmoid colon. MEDICATIONS: Deep sedation with propofol per anesthesia. SPECIMEN: None. ESTIMATED BLOOD LOSS: None related to the procedure. PROCEDURE: Incomplete colonoscopy secondary to poor prep. FINDINGS: Prior to propofol sedation, procedure of colonoscopy discussed with the patient, all potential risks and its complications: The patient is very anxious about the red blood. He understands that we may not be able to complete a total colonoscopy today due to the fact this was an unprepped procedure. However, due to continued bleeding we agreed to proceed with the examination. With the patient in the left lateral decubitus position, digital examination was completed, which revealed no abnormalities. Subsequently, the Olympus video colonoscope was introduced in the rectum and advanced under direct vision. There was blackish material in the rectum. It covered much of the wall, but not every bit of the wall. We advanced the scope into the sigmoid colon and there continued to be extensive amount of blackish material coating the wall. I might point out no red blood was seen. I could see that there were diverticula. However, the material was quite adherent to the mucosa and even with the jet wash, it remained adherent and we could not see the mucosa well. As the scope was advanced into the sigmoid colon, it became more and more difficult to identify the lumen. At this point, it was felt to be unsafe to continue the procedure. It is also noted that no red blood was seen and at least in the distal colon, active bleeding was not identified. The scope was withdrawn. The patient tolerated the procedure well. [address] [address] PROCEDURE REPORT Name: VICK NORIEGA Room #: 239-P [facility] IN .R.#: [id number] Admission: 01/13/18 Attend Phys: Fitz Garnica MD Discharge: Date of : 41 Report #: [id number] DISPOSITION: The patient with rectal bleeding. Exam limited. However, active bleeding not identified in this limited exam. We will discuss further with the patient and family. We will need to repeat complete colonoscopy with adequate prep, potentially tomorrow. <ELECTRONICALLY SIGNED> By: Paulie Multani MD 01/14/18 0732 1553 0447 Paulie Multani MD /nt
--- NOTE | ~2018-01-12 | PATH ---
[facility] [place] [address] PATHOLOGY RPT PROCEDURE Name: TREY NORIEGA Room #: 239-P [facility] IN M.R.#: [id number] Admission: 01/13/18 Date of : 41 Discharge: 01/16/18 Report #: [id number] Path Case #: [id number] [facility] Accession Number: [id number] . 01 Material submitted: . PART A: POLYP X2 HEPATIC FLEXURE PART B: COLON POLYP 50 CM . 01 Clinical history: . Pre-op diagnosis: GI bleed Post-op diagnosis: Colon polyps . 02 Diagnosis: A. Colonic mucosa "polyp x 2 hepatic flexure": - Tubular adenomas. - There is no evidence of high-grade dysplasia or malignancy. . B. Colonic mucosa "colon polyp at 50 cm": - Tubular adenoma. - There is no evidence of high-grade dysplasia or malignancy. (SHA:pit 01/16/2018) QTP/01/16/2018 . 02 Electronically signed: . Bran Guerra MD, Pathologist NPI- [id number] . 01 Gross description: . A. The specimen is received in formalin, labeled "Trey Noriega, polyp x2 hepatic flexure". Received are two segments of pale ramsey soft tissue measuring 0.4 and 0.5 cm in maximum dimensions. The specimen is submitted entirely in cassette A1. . B. The specimen is received in formalin, labeled "Trey Noriega, colon polyp 50 cm". Received is a segment of pale ramsey soft tissue measuring 0.5 cm in maximum dimensions. The specimen is submitted entirely in cassette B1. (CAA; 01/15/2018) QAC/QAC . 02 Pathologist provided ICD-10: D12.3, D12.6 . 02 CPT . 299603, 198956 Specimen Comment: A courtesy copy of this report has been sent to Specimen Comment: [phone], , [place] [address] PATHOLOGY RPT PROCEDURE Name: TREY NORIEGA Room #: 239-P [facility] IN .R.#: [id number] Admission: 01/13/18 Date of : 41 Discharge: 01/16/18 Report #: [id number] Path Case #: [id number] Specimen Comment: Report sent to ,DR DEE / DR MELLO Specimen Comment: A duplicate report has been generated due to demographic updates. Performed at: 01 [facility] [id number], [place], [place] [id number] MD Angel Billings MD Phone: [phone] Performed at: [address] [facility] [address] [id number] MD Fely Spears MD Phone: [phone]
--- NOTE | ~2018-01-12 | EKG ---
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 : 1945 Requested By: Rickie Lange Order Number: [id number] MD: Jessee Fowler Measurements Intervals [place] Rate: 82 P: 83 SC: 117 QRS: 42 QRSD: 86 T: 225 QT: 450 QTc: 526 Interpretive Statements Sinus rhythm Borderline low voltage, extremity leads Abnormal R-wave progression, early transition Repolarization abnormality Prolonged QT interval Compared to ECG 01/09/2018 16:03:18 No significant changes Electronically Signed On 01-13-2018 8:08:57 COACH OPERATOR by Jessee Fowler [email or web address] <ELECTRONICALLY SIGNED> By: Jessee Fowler MD, [facility] 01/13/18807 99 99 Jessee Fowler MD, [facility] /EPI
--- NOTE | ~2018-01-12 | EKG ---
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 : 1945 Requested By: Fitz Garnica Order Number: [id number] MD: Lev Herrera Measurements Intervals [place] Rate: 71 P: 78 [place]: 149 QRS: 52 QRSD: 58 T: QT: 656 QTc: 714 Interpretive Statements Sinus rhythm Low voltage, extremity and precordial leads Abnormal R-wave progression, early transition Compared to ECG 01/13/2018 06:44:02 Low QRS voltage now present Prolonged QT interval now present ST (T wave) deviation no longer present Electronically Signed On 01-13-2018 16:40:49 BRAKE LINING FINISHER by Lev Herrera [email or web address] <ELECTRONICALLY SIGNED> By: Lev Herrera MD 01/13/18 1640 1259 1259 Lev Herrera MD /EPI
--- NOTE | ~2018-01-12 | P ---
[facility] [place] [address] [place] [address] PROCEDURE REPORT Name: VICK NORIEGA Room #: 239-P [facility] IN M.R.#: [id number] Admission: 01/13/18 Attend Phys: Fitz Garnica MD Discharge: Date of : 41 Report #: [id number] THIS REPORT FOR: //name// CC: Richy Garnica BRIEF HISTORY: The patient is a 72-year-old male with recurrent GI bleeding. An unprepped colonoscopy was attempted yesterday due to his significant recurrent bleeding, but could not be completed due to marked prep limitations. PREOPERATIVE DIAGNOSIS: Recurrent gastrointestinal bleeding. POSTOPERATIVE DIAGNOSES: 1. Colon polyps. 2. Moderate diverticulosis coli, sigmoid colon. MEDICATIONS: Deep sedation with propofol per anesthesia. SPECIMENS: 1. Hepatic flexure polyps x 2. 2. Pedunculated polyp at 50 cm. ESTIMATED BLOOD LOSS: 3 mL. PROCEDURE: Colonoscopy to the cecum and terminal ileum with snare polypectomy and biopsy. FINDINGS: Prior to propofol sedation, the procedure of colonoscopy was discussed with the patient as well as potential risks and its complications. He indicates he understands and desires to proceed. With the patient in the left lateral decubitus position, digital examination was completed, which revealed no abnormalities. Subsequently, the Olympus video colonoscope was introduced in the rectum and advanced under direct vision to the cecum. The cecum was identified by the ileocecal valve and appendiceal orifice. We were able to advance the scope easily across the ileocecal valve and obtained very deep insertion in the distal terminal ileum. I believe we advanced the scope at least 100 cm into the terminal ileum. At that point, the scope was withdrawn and careful circumferential views were obtained. The prep throughout the distal ileum and colon was excellent. The mucosa was within normal limits, normal vascular pattern and normal light reflex. As we withdrew the scope through the ileum, no bleeding lesions were seen. No blood was seen in the ileum. He had normal ileal mucosa. The scope was withdrawn back to the cecum. The ileocecal valve was inspected and noted to be within normal limits. The scope was withdrawn through the remainder of the colon. Again, the prep was [facility] [address] [place] [address] PROCEDURE REPORT Name: VICK NORIEGA Room #: 239-P [facility] IN ..#: [id number] Admission: 01/13/18 Attend Phys: Fitz Garnica MD Discharge: Date of : 41 Report #: [id number]. The mucosa was within normal limits, normal vascular pattern and normal light reflex. During this examination, no potential bleeding lesions such as arteriovenous malformations were seen. As we withdrew the scope, two diminutive polyps were seen and removed with biopsy forceps at the hepatic flexure. These were much too small to contribute to gastrointestinal bleeding. The scope was further withdrawn and no additional abnormalities were noted until the descending colon was reached and at 50 cm, a 5 mm pedunculated polyp was seen and removed by cold snare polypectomy. Distal to that area, the patient was noted to have moderately severe diverticular disease. However, no blood was seen. All the diverticula were unremarkable. The scope was withdrawn in the rectum. Upon retroflexion, no abnormalities were noted. The scope was withdrawn. The patient tolerated the procedure well. DISPOSITION: The patient with recurrent gastrointestinal bleeding. I do not see any bleeding sites or potential bleeding sites. We will continue to monitor hemoglobin. Also, if there is further evidence of bleeding he may need further evaluation such as a bleeding scan or possibly capsule endoscopy for further evaluation. <ELECTRONICALLY SIGNED> By: Paulie Multani MD 01/15/18 1907 1254 0318 Paulie Multani MD /nt
[~2018-01-12 22:26] MED LIST changes: +IRON325 PO
[2018-01-12 22:27] VITALS: BP 144/58
[2018-01-12] MEDS ORDERED: VASEPA PO (22:31)
[2018-01-12] MEDS ORDERED: PROTONIX40 M1 PO (22:33)
[2018-01-12 23:20] LABS: EOSINOPHILS 1.7 % (0.0-3.0); MONOCYTES 6.4 % (1.0-8.0); POLYS 78.3 % (36.0-66.0); RDW 15.1 % (10.5-14.5)
[2018-01-12 23:22] LABS: ABSOLUTE NEUTROPHILS 7.1 thou/uL (1.4-8.2); BASOPHILS 0.4 % (0.0-2.0); LYMPHOCYTES 13.2 % (24.0-44.0); MCH 32.3 pg (26.0-34.0); MCHC 34.4 g/dL (28.0-37.0); MCV 93.8 fL (80.0-100.0); PLATELET COUNT 185 thou/uL (150-400); RBC 1.99 mil/uL (4.50-6.00)
[2018-01-12 23:28] LABS: HEMATOCRIT 18.6 % (42.0-52.0); HEMOGLOBIN 6.4 gm/dL (14.0-18.0)
[2018-01-12 23:29] LABS: ANION GAP 9 mmol/L (7-16); BUN 31 mg/dL (7-18); CALCIUM 7.9 mg/dL (8.5-10.1); CHLORIDE 107 mmol/L (98-107); CO2 26 mmol/L (21-32); CREATININE 1.1 mg/dL (0.7-1.3); GLUCOSE 130 mg/dL (74-106); POTASSIUM 4.1 mmol/L (3.5-5.1); SODIUM 142 mmol/L (136-145)
[2018-01-12 23:31] LABS: APTT 23.6 Seconds (24.5-32.8); INR 1.1
[2018-01-12 23:37] LABS: ALBUMIN 2.6 g/dL (3.4-5.0); DIRECT BILIRUBIN 0.1 mg/dL (<0.1-0.3); SGOT 11 U/L (15-37); SGPT 18 U/L (30-65); TOTAL BILIRUBIN 0.4 mg/dL (<0.1-1.0); TROPONIN-I <0.06 ng/mL (<0.06)
[2018-01-13] VITALS (44 sets, daily range): BP systolic 106–147; BP diastolic 49–81
[2018-01-13 10:29] LABS: HEMATOCRIT 22.7 % (42.0-52.0)
[2018-01-14] VITALS (21 sets, daily range): BP systolic 106–148; BP diastolic 40–74
[2018-01-14 05:35] LABS: BASOPHILS 0.6 % (0.0-2.0); EOSINOPHILS 3.4 % (0.0-3.0); HEMATOCRIT 23.1 % (42.0-52.0); HEMOGLOBIN 7.9 gm/dL (14.0-18.0); LYMPHOCYTES 16.7 % (24.0-44.0); MCH 30.9 pg (26.0-34.0); MCHC 34.1 g/dL (28.0-37.0); MCV 90.7 fL (80.0-100.0); MONOCYTES 8.8 % (1.0-8.0); PLATELET COUNT 147 thou/uL (150-400); POLYS 70.5 % (36.0-66.0); RBC 2.54 mil/uL (4.50-6.00); RDW 18.4 % (10.5-14.5); WBC 7.1 thou/uL (4.0-11.0)
[2018-01-14 05:44] LABS: CALCIUM 7.7 mg/dL (8.5-10.1); CREATININE 1.1 mg/dL (0.7-1.3)
[2018-01-15] VITALS (25 sets, daily range): BP systolic 123–158; BP diastolic 50–77
[2018-01-15 06:14] LABS: HEMATOCRIT 22.5 % (42.0-52.0); HEMOGLOBIN 7.7 gm/dL (14.0-18.0)
[2018-01-16 05:07] VITALS: BP 147/74
[2018-01-16 05:20] LABS: CALCIUM 8.3 mg/dL (8.5-10.1); CREATININE 1.3 mg/dL (0.7-1.3); POTASSIUM 3.7 mmol/L (3.5-5.1)
[2018-01-16 05:24] LABS: HEMATOCRIT 26.8 % (42.0-52.0); HEMOGLOBIN 9.1 gm/dL (14.0-18.0); MCH 31.2 pg (26.0-34.0); MCHC 33.9 g/dL (28.0-37.0); RBC 2.91 mil/uL (4.50-6.00); RDW 17.6 % (10.5-14.5); WBC 7.1 thou/uL (4.0-11.0)
[2018-01-16 07:59] VITALS: BP 142/68
[2018-01-16 15:01] VITALS: BP 134/60
[2018-01-16 17:13] VITALS: BP 147/74
== END 2018-01-16 17:55 | disposition home or self-care (01) | DRG 377 ==
LOC: ER 22:26 → EROBS 01-13 00:05 → ICU 01-13 00:05
PROVIDERS: Emergency Medicine; Hospitalist; Internal Medicine Gastroenterology; Nurse Practitioner Acute Care
PROC: 30233N1 Transfusion of Nonautologous Red Blood Cells into Peripheral Vein, Percutaneous Approach (ICD-10-PCS; principal; 2018-01-13)
PROC: 05HB33Z Insertion of Infusion Device into Right Basilic Vein, Percutaneous Approach (ICD-10-PCS; principal; 2018-01-13)
PROC: 0DJD8ZZ Inspection of Lower Intestinal Tract, Via Natural or Artificial Opening Endoscopic (ICD-10-PCS; 2018-01-14)
PROC: 0D598ZZ Destruction of Duodenum, Via Natural or Artificial Opening Endoscopic (ICD-10-PCS; 2018-01-14)
PROC: 0DBL8ZZ Excision of Transverse Colon, Via Natural or Artificial Opening Endoscopic (ICD-10-PCS; 2018-01-15)
PROC: 0DBM8ZZ Excision of Descending Colon, Via Natural or Artificial Opening Endoscopic (ICD-10-PCS; 2018-01-15)
PROC: 0DB68ZX Excision of Stomach, Via Natural or Artificial Opening Endoscopic, Diagnostic (ICD-10-PCS; 2018-01-15)
DX: K26.4 Chronic or unspecified duodenal ulcer with hemorrhage (principal); E43 Unspecified severe protein-calorie malnutrition; D62 Acute posthemorrhagic anemia; E46 Unspecified protein-calorie malnutrition; I10 Essential (primary) hypertension; E78.5 Hyperlipidemia, unspecified; I25.10 Atherosclerotic heart disease of native coronary artery without angina pectoris; E78.00 Pure hypercholesterolemia, unspecified; K57.30 Diverticulosis of large intestine without perforation or abscess without bleeding; I71.4 Abdominal aortic aneurysm, without rupture; K63.5 Polyp of colon; K44.9 Diaphragmatic hernia without obstruction or gangrene; I25.2 Old myocardial infarction; Z79.899 Other long term (current) drug therapy; Z98.41 Cataract extraction status, right eye; Z95.1 Presence of aortocoronary bypass graft; Z95.5 Presence of coronary angioplasty implant and graft; Z98.42 Cataract extraction status, left eye; Z88.1 Allergy status to other antibiotic agents; Z87.891 Personal history of nicotine dependence; Z68.36 Body mass index [BMI] 36.0-36.9, adult; Z83.3 Family history of diabetes mellitus
CPT/HCPCS: 10078; 27000; 62110; 62900

== ENCOUNTER → 2019-12-18 | Outpatient (CLI) | payer OTHER ==
[~2019-12-18] MED LIST changes: +PROTONIX40 M1 PO; +VASEPA PO
[2019-12-18 09:55] LABS: CREATININE 1.1 mg/dL (0.7-1.3)
== END ==
LOC: CAT 08:51
PROVIDERS: ATTEND Nuclear Medicine Nuclear Cardiology
DX: Z01.818 Encounter for other preprocedural examination (principal); I70.1 Atherosclerosis of renal artery; N28.1 Cyst of kidney, acquired; I71.4 Abdominal aortic aneurysm, without rupture; M47.815 Spondylosis without myelopathy or radiculopathy, thoracolumbar region; Z95.828 Presence of other vascular implants and grafts; Z98.890 Other specified postprocedural states

== ENCOUNTER → 2019-12-22 | Outpatient (CLI) | payer OTHER | LOC: SJCVCIMAG 11-26 07:55 | PROVIDERS: ATTEND Internal Medicine Cardiovascular Disease | DX: I65.23 Occlusion and stenosis of bilateral carotid arteries (principal); I77.9 Disorder of arteries and arterioles, unspecified; I25.10 Atherosclerotic heart disease of native coronary artery without angina pectoris; I10 Essential (primary) hypertension; E78.00 Pure hypercholesterolemia, unspecified; Z95.1 Presence of aortocoronary bypass graft; Z79.899 Other long term (current) drug therapy; Z87.891 Personal history of nicotine dependence ==

== ENCOUNTER → 2020-01-06 | Outpatient (CLI) | payer OTHER | LOC: SJCVC 15:24 | PROVIDERS: ATTEND Internal Medicine Cardiovascular Disease | DX: I65.23 Occlusion and stenosis of bilateral carotid arteries (principal); I49.1 Atrial premature depolarization; I25.10 Atherosclerotic heart disease of native coronary artery without angina pectoris; E78.00 Pure hypercholesterolemia, unspecified; I10 Essential (primary) hypertension; I71.4 Abdominal aortic aneurysm, without rupture; Z95.828 Presence of other vascular implants and grafts; Z79.899 Other long term (current) drug therapy; Z87.891 Personal history of nicotine dependence ==

== ENCOUNTER → 2020-08-16 | Outpatient (CLI) | payer OTHER | LOC: SJCVC 09:48 | PROVIDERS: ATTEND Internal Medicine Cardiovascular Disease | DX: R94.31 Abnormal electrocardiogram [ECG] [EKG] (principal); I49.1 Atrial premature depolarization; I25.10 Atherosclerotic heart disease of native coronary artery without angina pectoris; I10 Essential (primary) hypertension; E78.00 Pure hypercholesterolemia, unspecified; I77.9 Disorder of arteries and arterioles, unspecified; I71.4 Abdominal aortic aneurysm, without rupture; I38 Endocarditis, valve unspecified; J44.9 Chronic obstructive pulmonary disease, unspecified; K27.4 Chronic or unspecified peptic ulcer, site unspecified, with hemorrhage; I65.23 Occlusion and stenosis of bilateral carotid arteries; D68.2 Hereditary deficiency of other clotting factors; Z95.828 Presence of other vascular implants and grafts; Z87.891 Personal history of nicotine dependence; Z95.1 Presence of aortocoronary bypass graft; Z85.46 Personal history of malignant neoplasm of prostate; Z79.82 Long term (current) use of aspirin; Z79.899 Other long term (current) drug therapy; Z95.818 Presence of other cardiac implants and grafts; Z72.89 Other problems related to lifestyle ==

== ENCOUNTER → 2021-01-24 | Outpatient (CLI) | payer OTHER ==
[~2021-01-24] MED LIST changes: +ASA81BEC PO; +BUPROPION XL300 MG PO; +FLOMAX0.4 MG PO; +LEVSIN0.125 MG PO; +TORSEMIDE10 MG PO; +TRAZODONE HCL50 MG PO; +ZOFRAN ODT4 MG PO
== END ==
LOC: SJCVCIMAG 07:09
PROVIDERS: ATTEND Internal Medicine Cardiovascular Disease
DX: I65.23 Occlusion and stenosis of bilateral carotid arteries (principal); I07.1 Rheumatic tricuspid insufficiency; I49.3 Ventricular premature depolarization; I25.10 Atherosclerotic heart disease of native coronary artery without angina pectoris; E78.00 Pure hypercholesterolemia, unspecified; I77.9 Disorder of arteries and arterioles, unspecified; I71.4 Abdominal aortic aneurysm, without rupture; I10 Essential (primary) hypertension; J44.9 Chronic obstructive pulmonary disease, unspecified; E78.5 Hyperlipidemia, unspecified; Z95.828 Presence of other vascular implants and grafts; Z87.891 Personal history of nicotine dependence; Z79.82 Long term (current) use of aspirin; Z79.899 Other long term (current) drug therapy; Z72.89 Other problems related to lifestyle; Z88.8 Allergy status to other drugs, medicaments and biological substances; Z95.1 Presence of aortocoronary bypass graft

== ENCOUNTER 2021-01-27 13:33 | Emergency (ER) | payer OTHER ==
[~2021-01-27] VITALS: Ht 180.3 cm; Wt 121.6 kg
[~2021-01-27 13:33] MED LIST changes: -ASA81BEC PO; -BUPROPION XL300 MG PO; -FLOMAX0.4 MG PO; -LEVSIN0.125 MG PO; -TORSEMIDE10 MG PO; -TRAZODONE HCL50 MG PO; -ZOFRAN ODT4 MG PO
[2021-01-27] MEDS ORDERED: VALSARTAN-HCTZ1 EAC3 PO (14:57)
[2021-01-27] MEDS ORDERED: FLOMAX0.4 MG PO (14:57)
[2021-01-27] MEDS ORDERED: TORSEMIDE10 MG PO (14:58)
[2021-01-27] MEDS ORDERED: BUPROPION XL300 MG PO (14:58)
[2021-01-27] MEDS ORDERED: ASA81BEC PO (14:59)
[2021-01-27] MEDS ORDERED: TRAZODONE HCL50 MG PO (14:59)
[2021-01-27 15:03] LABS: ABSOLUTE NEUTROPHILS 8.2 thou/uL (1.4-8.2); BASOPHILS 0.5 % (0.0-2.0); EOSINOPHILS 0.5 % (0.0-3.0); HEMATOCRIT 43.7 % (42.0-52.0); HEMOGLOBIN 14.5 gm/dL (14.0-18.0); LYMPHOCYTES 8.4 % (24.0-44.0); MCH 30.7 pg (26.0-34.0); MCHC 33.2 g/dL (28.0-37.0); MCV 92.6 fL (80.0-100.0); MONOCYTES 7.1 % (1.0-8.0); PLATELET COUNT 158 thou/uL (150-400); POLYS 83.5 % (36.0-66.0); RBC 4.72 mil/uL (4.50-6.00); RDW 14.7 % (10.5-14.5); WBC 9.8 thou/uL (4.0-11.0)
[2021-01-27 15:10] LABS: CALCIUM 9.5 mg/dL (8.5-10.1); CREATININE 1.7 mg/dL (0.7-1.3); POTASSIUM 4.3 mmol/L (3.5-5.1)
[2021-01-27 15:14] LABS: URINE BILIRUBIN NEGATIVE (Negative); URINE BLOOD NEGATIVE (Negative); URINE CLARITY CLEAR; URINE COLOR YELLOW; URINE GLUCOSE-RANDOM* NEGATIVE (Negative); URINE KETONES NEGATIVE (Negative); URINE LEUKOCYTES-REFLEX NEGATIVE (Negative); URINE NITRITE-REFLEX NEGATIVE (Negative); URINE PROTEIN (DIPSTICK) NEGATIVE (Negative); URINE UROBILINOGEN 0.2 E.U./dl (0.2-1.0)
[2021-01-27 15:18] LABS: INR 1.01
[2021-01-27 15:23] LABS: TOTAL BILIRUBIN 0.7 mg/dL (0.2-1.0); TOTAL PROTEIN 7.5 g/dL (6.4-8.2)
[2021-01-27] MEDS ORDERED: LEVSIN0.125 MG PO (18:10)
[2021-01-27] MEDS ORDERED: ZOFRAN ODT4 MG PO (18:10)
[2021-01-27 18:21] VITALS: BP 149/66
--- NOTE | 2021-01-30 07:32 | EKG ---
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1945 Requested By: Ranulfo Casas Order Number: [id number] MD: Felix Edwards Measurements Intervals [place] Rate: 69 P: 67 [place]: 187 QRS: 38 QRSD: 108 T: 21 QT: 403 QTc: 432 Interpretive Statements Sinus arrhythmia Low voltage, precordial leads Compared to ECG 01/13/2018 12:59:36 Sinus rhythm no longer present Electronically Signed On 01-30-2021 7:31:51 GEAR NICKER by Felix Edwards [email or web address] <ELECTRONICALLY SIGNED> By: Felix Edwards MD, [facility] 01/30/21 0731 1456 1456 Felix Edwards MD, FACC /EPI
== END 2021-01-27 18:22 | disposition home or self-care (01) ==
LOC: ER 13:33
PROVIDERS: Emergency Medicine
DX: R10.30 Lower abdominal pain, unspecified (principal); I10 Essential (primary) hypertension; E87.8 Other disorders of electrolyte and fluid balance, not elsewhere classified; Z79.899 Other long term (current) drug therapy; Z87.891 Personal history of nicotine dependence; Z88.8 Allergy status to other drugs, medicaments and biological substances